=== PATIENT | male | born 1995 | race Caucasian/White ===

== ENCOUNTER 2021-10-24 19:18 | Emergency (ER) | payer SELFPAY ==
[2021-10-24 19:19] VITALS: BP 140/78; PULSE 120; RESP 18; TEMP 36.7; O2SAT 95; BMI 21.3
--- NOTE | 2021-10-24 19:26 | ED_ITS ---
HPI - Wound/Laceration General: Chief Complaint: Wound/Laceration Stated Complaint: LAC Time Seen by Provider: 10/24/21 19:23 History of Present Illness: 26-year-old presents intoxicated by EMS after punching a gun cabinet and sustaining a left wrist laceration. Per EMS there was significant pulsatile bleeding at the scene. Tourniquet was placed. Upon arrival patient complains of numbness and pain in the hand. States last tetanus shot was 2 years ago. Denies any other pain or injury. Does note alcohol use. Denies any other drugs. Denies blood tenderness. Review of Systems Narrative: - CONSTITUTIONAL: Denies weight loss, fever and chills. - HEENT: Denies changes in vision and hearing. - RESPIRATORY: Denies SOB and cough. - CV: Denies palpitations and CP. - GI: Denies abdominal pain, nausea, vomiting and diarrhea. - : Denies dysuria and urinary frequency. - MSK: Denies myalgia and joint pain. - SKIN: Denies rash and pruritus. - NEUROLOGICAL: Denies headache, weakness, numbness and syncope. - PSYCHIATRIC: Denies suicidal ideation Physical Exam Narrative: EXAM NARRATIVE: - GENERAL: Alert and oriented x 3. No acute distress. Well-nourished. - EYES: EOMI. Anicteric. - HENT: Atraumatic, no C-spine tenderness. Moist mucous membranes. No scleral icterus. No cervical lymphadenopathy. - LUNGS: Clear to auscultation bilaterally. No accessory muscle use. Equal lung sounds bilaterally. No respiratory distress. - CARDIOVASCULAR: Regular rate and rhythm. No murmur. No JVD. - ABDOMEN: Soft, non-tender and non-distended. Negative CVA tenderness bilaterally, no rebound or guarding, negative Suarez sign. No palpable masses. - EXTREMITIES: Tourniquet and bandage to left forearm and wrist. Upon releasing the tourniquet there was pulsatile bleeding from 2 cm left wrist laceration. There is also reduced capillary refill. Tourniquet reapplied with cessation of bleeding. - SKIN: No rashes or lesions. Warm. - NEUROLOGIC: No meningismus or focal neurological deficits. CN II-XII grossly intact. - PSYCHIATRIC: Cooperative. Appropriate mood and affect. Course Vital Signs: Vital signs: Vital Signs Temperature 98.0 F 10/24/21 19:19 Pulse Rate 120 H 10/24/21 19:19 Respiratory Rate 20 H 10/24/21 19:48 Blood Pressure 140/78 10/24/21 19:19 Pulse Oximetry 95 10/24/21 19:19 MDM - Wound/Laceration Medical Decision Making 26-year-old presents with laceration to left wrist. There is a tourniquet on the side. Upon removing the tourniquet there is pulsatile bleeding and tourniquet was reapplied with cessation of bleeding. He is hemodynamically stable. No other sign of focal injury. IV fluids provided. Tetanus is up-to-date. Discussed with ER physician at where vascular surgery is available to consult as there is no vascular surgery at this facility. And he will accept ER to ER transfer. Patient is currently in stable condition awaiting transfer. Lab Data : 10/24/21 19:24 10/24/21 19:24 Laboratory Results WBC 8.7 10^3/uL (4.0-10.0) 10/24/21 19:24 RBC 4.57 10^6/uL (4.1-5.3) 10/24/21 19:24 Hgb 14.2 g/dL (11.7-16.6) 10/24/21 19:24 Hct 41.5 % (42.0-52.0) L 10/24/21 19:24 MCV 90.8 fl (80-94) 10/24/21 19:24 MCH 31.1 pg (28.0-34.0) 10/24/21 19:24 MCHC 34.2 g/dL (30.0-36.0) 10/24/21 19:24 RDW 12.2 % (12.1-15.1) 10/24/21 19:24 Plt Count 219 10^3/cmm (130-400) 10/24/21 19:24 MPV 10.3 fL (7.4-10.4) 10/24/21 19:24 Neut % (Auto) 32.8 % 10/24/21 19:24 Lymph % (Auto) 53.9 % 10/24/21 19:24 Swisher % (Auto) 9.0 % 10/24/21 19:24 Eos % (Auto) 2.9 % 10/24/21 19:24 Baso % (Auto) 1.3 % 10/24/21 19:24 Neut # (Auto) 2.87 10^3/uL (1.8-7.7) 10/24/21 19:24 Lymph # (Auto) 4.7 10^3/uL (0.8-4.8) 10/24/21 19:24 Swisher # (Auto) 0.8 10^3/uL (0.2-0.9) 10/24/21 19:24 Eos # (Auto) 0.3 10^3/uL (0.0-0.8) 10/24/21 19:24 Baso # (Auto) 0.1 10^3/uL (0.0-0.1) 10/24/21 19:24 Nucleated RBC % (auto) 0 % 10/24/21 19:24 Nucleated RBCs # 0.0 /100WBC 10/24/21 19:24 PT 13.60 SECONDS (12.1-14.9) 10/24/21 19:24 INR 1.01 (0.8-1.2) 10/24/21 19:24 APTT 24.1 SECONDS (23.9-36.7) 10/24/21 19:24 Discharge Plan Discharge Condition: Stable Discharge Orders: Transfer Out of Facility (Order); Ordered 10/24/21 Ordered By: Florencio Paz Coding Level of Care Code ED Industrial Property Appraiser for Ana Liliag Yaakov
[2021-10-24 19:35] LABS: Basophils # 0.1 10^3/uL (0.0-0.1); Basophils % 1.3 %; Eosinophils # 0.3 10^3/uL (0.0-0.8); Eosinophils % 2.9 %; Hematocrit 41.5 % (42.0-52.0); Hemoglobin 14.2 g/dL (11.7-16.6); Lymphocytes # 4.7 10^3/uL (0.8-4.8); Lymphocytes % 53.9 %; Mean Corpuscular HGB Conc 34.2 g/dL (30.0-36.0); Mean Corpuscular Hemoglobin 31.1 pg (28.0-34.0); Mean Corpuscular Volume 90.8 fl (80-94); Mean Platelet Volume 10.3 fL (7.4-10.4); Monocytes # 0.8 10^3/uL (0.2-0.9); Neutrophils # 2.87 10^3/uL (1.8-7.7); Neutrophils % 32.8 %; Nucleated Red Blood Cells % 0 %; Platelet Count 219 10^3/cmm (130-400); Red Blood Count 4.57 10^6/uL (4.1-5.3); Red Cell Distribution Width 12.2 % (12.1-15.1); White Blood Count 8.7 10^3/uL (4.0-10.0)
[2021-10-24 19:46] LABS: INR 1.01 (0.8-1.2)
[2021-10-24 19:47] LABS: Partial Thromboplastin Time 24.1 SECONDS (23.9-36.7)
[2021-10-24 19:48] VITALS: RESP 20
[2021-10-24] MEDS: fentaNYL 50 mcg/mL INJ 2mL IVP (19:48)
[2021-10-24] MEDS: midazolam 1 mg/mL INJ 2 mL 2 MG IVP (19:48)
[2021-10-24] MEDS: sodium chloride 0.9% 1,000 ML 999 ML IV (19:49)
[2021-10-24 19:56] LABS: Alanine Aminotransferase 9 U/L (0-41); Albumin Level 4.9 g/dL (3.5-5.2); Alkaline Phosphatase 70 IU/L (40-130); Anion Gap 19.9 (5-19); Aspartate Amino Transferase 18 U/L (0-40); Blood Urea Nitrogen 9 mg/dL (6-20); Calcium 8.8 mg/dL (8.5-10.5); Carbon Dioxide 19 mmol/L (22-29); Chloride 91 mmol/L (98-107); Creatinine Clr Calc Pharmacy 150.3693; Globulin 2.4 g/dL (1.3-4.6); Glomerular Filtration Rate 115.1 mL/min (90-130); Glucose 113 mg/dL (65-115); Osmolality Calculated 263 mOsm/kg (285-295); Sodium 127 mmol/L (136-145); Total Bilirubin 0.3 mg/dL (0.15-1.2); Total Protein 7.3 g/dL (6.6-8.7)
[2021-10-24 20:01] LABS: Alcohol Level 329 mg/dL (0-10); Potassium 2.9 mmol/L (3.5-5.1)
[2021-10-24 20:07] VITALS: RESP 20
[2021-10-24] MEDS: HYDROmorphone 1 mg/mL INJ 1 mL IVP (20:07)
[2021-10-24] MEDS: potassium chloride premix 100 ML 25 MEQ IV (20:11)
[2021-10-24 20:17] VITALS: BP 147/116; PULSE 98; RESP 20; O2SAT 95
[2021-10-24 20:23] LABS: Magnesium 1.9 mg/dL (1.7-2.3)
== END 2021-10-24 20:28 ==
PROVIDERS: Emergency Provider Emergency Medicine
DX: S61.512A Laceration without foreign body of left wrist, initial encounter (principal); W22.8XXA Striking against or struck by other objects, initial encounter
CPT/HCPCS: 80053; 80307; 83735; 85025; 85610; 85730; 86850; 86900; 99285; 99291; J1170; J2250; J3010; J3480; J7030